=== PATIENT | female | born 1970 | race African-American/Black ===

== ENCOUNTER 2017-05-04 10:16 | Emergency (ER) | payer SELFPAY ==
[~2017-05-04] VITALS: Ht 149.9 cm; Wt 77.1 kg
--- OUTSIDE RECORDS SUMMARY | 2017-05-04 10:18 | XMS REPORT ---
Author Author [facility] Address Unknown Phone Unavailable Care Team Providers Care Associate Dean Of Women Name Role Phone CAROL, MARIAA Unavailable Unavailable VU, TRIEN Unavailable Unavailable Problems This patient has no known problems. Allergies, Adverse Reactions, Alerts This patient has no known allergies or adverse reactions. Medications This patient has no known medications. Results Test Description Test Time Test Comments Text Results Atomic Results Result Comments PT/APTT 2017-04-04 07:46:00 PROTIME (BEAKER) (test nhbe=660) 13.7 seconds 11.7-14.7 INR (BEAKER) (test bsly=080) 1.1 <=5.9 PARTIAL THROMBOPLASTIN TIME (BEAKER) (test npye=705) 27.6 seconds 22.5-36.0 RECOMMENDED COUMADIN/WARFARIN INR THERAPY RANGESSTANDARD DOSE: 2.0 - 3.0 Includes: PROPHYLAXIS for venous thrombosis, systemic embolization; TREATMENT for venous thrombosis and/or pulmonary embolus.HIGH RISK: Target INR is 2.5-3.5 for patients with mechanical heart valves.CT, BRAIN, WITHOUT [id number] 07:45:00FINAL REPORT CT head without contrast INDICATION : Migraine with history of pontine infarct, right occipital lobe infarct. TECHNIQUE: Axial noncontrast CT images through the head were obtained. This exam was performed according to our departmental dose optimization program which includes automated exposure control, adjustment of the mA and/or kV according to patient size and/or use of iterative reconstruction technique. COMPARISON: MRI brain 12/27/2016, CT head 12/26/2016 FINDINGS:A small left pontine infarct is now presumably chronic. The right occipital lobe infarcts are not readily apparent on CT. There are small chronic bilateral striatocapsular, right thalamic, right occipital lobe, and right cerebellar infarcts. Other white matter changes are similar and chronic appearing. No acute territorial infarct is evident on CT. Please note that CT is insensitive for early or small infarcts. Intracranial atherosclerotic calcifications are noted. There is no hydrocephalus, mass effect, or midline shift. The visualized sinuses, mastoid air cells, and orbits are unremarkable. Nonspecific prominent nasopharyngeal soft tissue may be reactive but should be correlated clinically. The calvarium is intact. IMPRESSION: No acute intracranial hemorrhage or mass effect. Advanced for age but chronic appearing ischemic changes. If there is persistent concern for acute abnormality, MRI is advised. Signed: Brain [place] MDReport Verified Date/Time: 04/04/2017 07:45:33 Reading Location: [facility] C013V Neuro Reading Room C METABOLIC [id number] 07:42:00* Test Item Value Reference Range Comments SODIUM (BEAKER) (test euar=392) 140 meq/L 136-145 POTASSIUM (BEAKER) (test kkhi=494) 3.7 meq/L 3.5-5.1 CHLORIDE (BEAKER) (test dnly=861) 112 meq/L 98-107 CO2 (BEAKER) (test mrub=704) 18 meq/L 22-29 BLOOD UREA NITROGEN (BEAKER) (test uozf=455) 8 mg/dL 7-21 CREATININE (BEAKER) (test tylf=702) 0.67 mg/dL 0.57-1.25 GLUCOSE RANDOM (BEAKER) (test zevz=726) 122 mg/dL 70-105 CALCIUM (BEAKER) (test mxbw=189) 9.6 mg/dL 8.4-10.2 EGFR (BEAKER) (test xpcb=3502) 113 mL/min/1.73 sq m ESTIMATED GFR IS NOT ACCURATE CREATININE CLEARANCE IN PREDICTING GLOMERULAR FILTRATION RATE. ESTIMATED GFR IS NOT APPLICABLE FOR DIALYSIS PATIENTS. CBC W/PLT COUNT & AUTO [id number] 07:26:00* Test Item Value Reference Range Comments WHITE BLOOD CELL COUNT (BEAKER) (test dupc=311) 9.0 K/ L 3.5-10.5 RED BLOOD CELL COUNT (BEAKER) (test luvs=440) 4.19 M/ L 3.93-5.22 HEMOGLOBIN (BEAKER) (test kuzk=559) 12.6 GM/DL 11.2-15.7 HEMATOCRIT (BEAKER) (test ikwr=230) 38.6 % 34.1-44.9 MEAN CORPUSCULAR VOLUME (BEAKER) (test iftn=335) 92.1 fL 79.4-94.8 MEAN CORPUSCULAR HEMOGLOBIN (BEAKER) (test sbos=418) 30.1 pg 25.6-32.2 MEAN CORPUSCULAR HEMOGLOBIN CONC (BEAKER) (test ifha=103) 32.6 GM/DL 32.2- 35.5 RED CELL DISTRIBUTION WIDTH (BEAKER) (test squl=260) 11.8 % 11.7-14.4 PLATELET COUNT (BEAKER) (test ufin=858) 312 K/CU MM 150-450 MEAN PLATELET VOLUME (BEAKER) (test mpcu=261) 8.7 fL 9.4-12.3 NUCLEATED RED BLOOD CELLS (BEAKER) (test sppn=338) 0 /100 WBC 0-0 NEUTROPHILS RELATIVE PERCENT (BEAKER) (test xorh=953) 68 % LYMPHOCYTES RELATIVE PERCENT (BEAKER) (test sdja=612) 24 % MONOCYTES RELATIVE PERCENT (BEAKER) (test xlvu=271) 6 % EOSINOPHILS RELATIVE PERCENT (BEAKER) (test duvd=538) 1 % BASOPHILS RELATIVE PERCENT (BEAKER) (test nzcr=259) 1 % NEUTROPHILS ABSOLUTE COUNT (BEAKER) (test zrri=063) 6.08 K/ L 1.56-6.13 LYMPHOCYTES ABSOLUTE COUNT (BEAKER) (test lhuy=596) 2.17 K/ L 1.18-3.74 MONOCYTES ABSOLUTE COUNT (BEAKER) (test wxgg=693) 0.53 K/ L 0.24-0.36 EOSINOPHILS ABSOLUTE COUNT (BEAKER) (test nipv=786) 0.11 K/ L 0.04-0.36 BASOPHILS ABSOLUTE COUNT (BEAKER) (test fqwg=161) 0.05 K/ L 0.01-0.08 IMMATURE GRANULOCYTES-RELATIVE PERCENT (BEAKER) (test ydem=9131) 0 % 0-1 DILUTE KATHERYN VIPER VENOM (DRVV)2016-12-31 15:34:00* Test Item Value Reference Range Comments PROTIME (BEAKER) (test vucd=506) 14.1 seconds 11.7-14.7 INR (BEAKER) (test pmbz=564) 1.1 <=5.9 PARTIAL THROMBOPLASTIN TIME (BEAKER) (test ajyg=939) 31.3 seconds 22.5-36.0 DRVV INTERPRETATION (BEAKER) (test opgt=7626) Normal DRVV Results DRVV INTERPRETATION (BEAKER) (test ciur=824935) Normal Hexagonal Phospholipid DRVV INTERPRETATION (BEAKER) (test otsp=972531) Negative screen for Lupus Anticoagulant XELB-LHFAXAJRRQK-055 (BEAKER) (test yimy=1486) Vianey Sims MD ( electronic signature) DRVV SCREEN RATIO (BEAKER) (test jdwh=4628) 0.87 <1.20 HEXAGONAL [id number] 13:39:00* Test Item Value Reference Range Comments HEXAGONAL PHOSPHOLIPID (BEAKER) (test vvlf=5360) Negative CARDIOLIPIN ANTIBODIES, IGG AND [id number] 14:06:00* Test Item Value Reference Range Comments ANTICARDIOLIPIN IGG ANTIBODY (BEAKER) (test efjn=887) < GPL ANTICARDIOLIPIN IGM ANTIBODY (BEAKER) (test tdnr=735) 0.4 MPL Anticardiolipin IgG Result Interpretation: <10.0 GPL Vmnkuh93.0-11.9 GPL Equivocal >/=12.0 GPL PositiveAnticardiolipin IgM Result Interpretation: < 10.0 MPL Irkpuo24.0-11.9 MPL Equivocal >/=12.0 MPL [id number] 07:53:00* Test Item Value Reference Range Comments PHOSPHORUS (BEAKER) (test fzsj=720) 2.8 mg/dL 2.3-4.7 [id number] 07:53:00* Test Item Value Reference Range Comments MAGNESIUM (BEAKER) (test igsg=541) 1.6 mg/dL 1.6-2.6 BASIC METABOLIC [id number] 07:53:00* Test Item Value Reference Range Comments SODIUM (BEAKER) (test pewn=201) 138 meq/L 136-145 POTASSIUM (BEAKER) (test awlo=004) 4.1 meq/L 3.5-5.1 CHLORIDE (BEAKER) (test ahfe=664) 107 meq/L 98-107 CO2 (BEAKER) (test jwjb=241) 24 meq/L 22-29 BLOOD UREA NITROGEN (BEAKER) (test eoav=100) 8 mg/dL 7-21 CREATININE (BEAKER) (test wvyg=213) 0.66 mg/dL 0.57-1.25 GLUCOSE RANDOM (KEISHAAKER) (test xsdk=145) 102 mg/dL 70-105 CALCIUM (BEAKER) (test egms=147) 9.1 mg/dL 8.4-10.2 EGFR (KEISHAAKER) (test leii=3751) 116 mL/min/1.73 sq m ESTIMATED GFR IS NOT ACCURATE CREATININE CLEARANCE IN PREDICTING GLOMERULAR FILTRATION RATE. ESTIMATED GFR IS NOT APPLICABLE FOR DIALYSIS PATIENTS. FACTOR 5 LEIDEN PCR (THROMBOTIC RISK)2016-12-28 15:08:00* Test Item Value Reference Range Comments FACTOR V LEIDEN (UMANG) (test fjij=075) Negative for the R506Q (Factor V Leiden) mutation [id number] ([facility]) (test dram=4251) Vianey iSms MD ( electronic signature) This test is a genotyping assay which evaluates the DNA sequence corresponding to Codon 506 of the Factor V Gene. A region of the Factor V Gene is amplified by polymerase chain reaction followed by fluorescent monitoring of a specific pair of hybridized probes. Since genetic variation and other factors can affect the accuracy of direct mutation testing, these results should be interpreted in light of clinical and familial data.This test was developed and its performance characteristics determined by the [facility] Pathology Department, Section of Molecular Pathology. It has not been cleared or approved by the U.S. Food and Drug Administration (FDA), since FDA approval is not required for clinical use of the test. Validation was done as required by the Clinical Laboratory Improvement Amendments of 1988.PROTHROMBIN GENE [id number] 15:05:00* Test Item Value Reference Range Comments PROTHROMBIN/FACTOR II (KEISHAAKER) (test cbuc=9443) Negative for the U13226Z ( Prothrombin/Factor II) mutation. [id number]([facility]) (test riha=4906) Vianey Sims MD ( electronic signature) This test is a genotyping assay which evaluates the DNA sequence at position [address] of the prothrombin (Factor II) gene. A region of the prothrombin (Factor II) gene is amplified by polymerase chain reaction followed by fluorescent monitoring of a specific pair of hybridized probes. Since genetic variation and other factors can affect the accuracy of direct mutation testing, these results should be interpreted in light of clinical and familial data.This test was developed and its performance characteristics determined by the [facility] Pathology Department, Section of Molecular Pathology. It has not been cleared or approved by the U.S. Food and Drug Administration (FDA), since FDA approval is not required for clinical use of the test. Validation was done as required by the Clinical Laboratory Improvement Amendments of 1988.DOUBLE- STRANDED DNA (DSDNA) [id number] 13:28:00* Test Item Value Reference Range Comments ANTI-DNA DS (BEAKER) (test rqfn=6898) Negative [id number] 07:15:00* Test Item Value Reference Range Comments RPR SCREEN (BEAKER) (test abyc=156) Nonreactive Nonreactive MR, BRAIN, [id number] 19:51:00FINAL REPORT MRI Brain with and without contrast 12/27/2016 7:46 PM CLINICAL HISTORY: Vasculitis, UNDERWRITING ANALYST, focal neuro deficit TECHNIQUE: Multiplanar, multisequence MR imaging of the brain was performed, utilizing the following imaging sequences: Axial T1, T2, FLAIR, GRE, DWI/ADC; sagittal T1; postcontrast axial, sagittal, and coronal T1. COMPARISON: CT brain 12/26/2016. FINDINGS: There is a small acute nonhemorrhagic infarct in the dorsal left martha. There there are punctate recent infarcts in the subcortical white matter of the right occipital lobe and right periatrial white matter. There is no hematoma, mass, hydrocephalus, extra-axial collection , or abnormal intracranial enhancement. There are chronic microvascular infarcts in the [place] nuclei and martha, with mild chronic microvascular ischemia elsewhere in the supratentorial white matter and martha. There are tiny chronic infarcts in the cortex of the right occipital lobe and right cerebellum. Normal appearing flow-voids are present in the major intracranial vascular structures. The sellar and pineal regions, craniocervical junction, orbits, face, and skull base are unremarkable. IMPRESSION:1. Small acute nonhemorrhagic left pontine infarct.2. Punctate recent nonhemorrhagic right occipital lobe and right periatrial white matter infarcts.3. Chronic ischemic changes, greater than expected for age. Signed: Shahram Henry Verified Date/Time: 12/27/2016 19:51:45 Reading Location: [facility] Reading Room Electronically signed by: SHAHRAM HENRY M.D. on 07:51 PM MR, SPINE, CERVICAL, [id number] 19:45:00FINAL REPORT MRI cervical spine with and without contrast 12/27/2016 at 1933. CLINICAL HISTORY: Transverse myelitis, focal neuro deficit. TECHNIQUE: MRI of the cervical spine was performed utilizing the following sequences: Sagittal T1, T2, STIR; axial T1 and T2; postcontrast sagittal and axial T1. COMPARISON: None available. FINDINGS: The spinal cord is normal in size and signal intensity and contains no areas of abnormal enhancement. There is no fracture or malalignment. Bone marrow signal intensity is unremarkable. Spinal canal diameter is within normal limits. There are multilevel degenerative changes, without high-grade central canal or foraminal stenosis. The visualized soft tissue is without worrisome finding. There is a tiny chronic appearing infarct in the inferior right cerebellum. IMPRESSION:1. No evidence for transverse myelitis.2. Chronic appearing mild degenerative changes.3. Chronic appearing right cerebellar infarct. Please refer to separately dictated report for the MRI brain for further details. Signed: Shahram Henry MDReport Verified Date/Time: 12/27/2016 19:45:06 Reading Location: [facility] Reading Room Electronically signed by: SHAHRAM HNERY M.D. on 07:45 PM MR, MRA, NECK, WITHOUT IV [id number] 18:51:00Reason for exam:->Ischemic Stroke EvaluationFINAL REPORT MRA brain and neck without contrast 12/27/2016 6:50 PM CLINICAL HISTORY: StrokeIschemic Stroke Evaluation COMPARISON: None available TECHNIQUE: Two- and three-dimensional lnxn-ah-uaqpah MRA images of the intra- and extracranial arterial vasculature was performed, from which maximal intensity projection 3-D reconstructions were created. FINDINGS: MRA neck: There is no vessel occlusion or flow-limiting stenosis. There is no NASCET-quantifiable cervical internal carotid artery stenosis. Flow is antegrade in both vertebral arteries. MRA [place]: There is no vessel occlusion or flow-limiting stenosis. There are infundibula arising from both communicating segment internal carotid arteries. IMPRESSION: Negative intra- and extracranial MRAs. Signed: Shahram Henry Verified Date/Time: 12/27/2016 18:51:00 Reading Location: [facility] Reading Room , MRA, BRAIN, WITHOUT [id number] 18:50: 00Reason for exam:->Ischemic Stroke EvaluationFINAL REPORT MRA brain and neck without contrast 12/27/2016 6:50 PM CLINICAL HISTORY : StrokeIschemic Stroke Evaluation COMPARISON: None available TECHNIQUE: Two- and three-dimensional qqmi-xj-bnysmk MRA images of the intra- and extracranial arterial vasculature was performed, from which maximal intensity projection 3-D reconstructions were created. FINDINGS: MRA neck: There is no vessel occlusion or flow-limiting stenosis. There is no NASCET-quantifiable cervical internal carotid artery stenosis. Flow is antegrade in both vertebral arteries. MRA [place]: There is no vessel occlusion or flow-limiting stenosis. There are infundibula arising from both communicating segment internal carotid arteries. IMPRESSION: Negative intra- and extracranial MRAs. Signed: Shahram Henry Verified Date/Time: 12/27/2016 18:50:40 Reading Location: [facility] Reading Room MENTATION [id number] 17:56:00* Test Item Value Reference Range Comments SEDIMENTATION RATE, ERYTHROCYTE (BEAKER) (test qrmw=351) 32 mm/HR 0-20 PROTEIN C [id number] 12:49:00* Test Item Value Reference Range Comments PROTEIN C ACTIVITY (BEAKER) (test hnxc=892) 138.0 % 70.0-130.0 ANTITHROMBIN [id number] 12:40:00* Test Item Value Reference Range Comments ANTITHROMBIN III ACTIVITY (BEAKER) (test wzsz=917) 106.0 % 80.0-120.0 HEMOGLOBIN [id number] 09:05:00* Test Item Value Reference Range Comments HEMOGLOBIN A1C (BEAKER) (test cfpu=555) 4.7 % 4.3-6.1 TROPONIN [id number] 04:05:00* Test Item Value Reference Range Comments TROPONIN I (BEAKER) (test uqbw=074) < ng/mL 0.00-0.03 Troponin I (TnI) levels must be interpreted in the context of the presenting symptoms and the clinical findings. Elevated TnI levels indicate myocardial damage, but are not specific for ischemic heart disease. Elevated TnI levels are seen in patients with other cardiac conditions (including myocarditis and congestive heart failure), and slight TnI elevations occur in patients with other conditions, including sepsis, renal failure, acidosis, acute neurological disease, and persistent tachyarrhythmia.FastingLIPID [id number] 03:58:00* Test Item Value Reference Range Comments TRIGLYCERIDES (BEAKER) (test zabj=587) 97 mg/dL CHOLESTEROL (BEAKER) (test fqjb=002) 189 mg/dL HDL CHOLESTEROL (BEAKER) (test nros=358) 45 mg/dL LDL CHOLESTEROL CALCULATED (BEAKER) (test tter=896) 125 mg/dL Triglyceride Reference Range: Low Risk <150 Borderline 150-199 High Risk 200-499 Very High Risk >=500Cholesterol Reference Range: Low Risk <200 Borderline 200-239 High Risk >240HDL Cholesterol Reference Range: Low Risk >=60 High Risk <40LDL Cholesterol Reference Range: Optimal <100 Near Optimal 100-129 Borderline 130-159 High 160-189 Very High >=190 [id number] 19:44:00* Test Item Value Reference Range Comments HOMOCYSTEINE (BEAKER) (test igvh=649) 5.9 umol/L 5.1-15.4 COMPLEMENT COMPONENT [id number] 19:24:00* Test Item Value Reference Range Comments C4 COMPLEMENT (BEAKER) (test ocxa=909) 33 mg/dL 15-57 COMPLEMENT COMPONENT [id number] 19:24:00* Test Item Value Reference Range Comments C3 COMPLEMENT (BEAKER) (test emyu=726) 151 mg/dL 82-193 T4, [id number] 18:32:00* Test Item Value Reference Range Comments FREE T4 (BEAKER) (test paxv=972) 0.84 ng/dL 0.70-1.48 TSH/FREE T4 IF [id number] 17:39:00* Test Item Value Reference Range Comments THYROID STIMULATING HORMONE (BEAKER) (test lhqq=936) 0.16 uIU/mL 0.35-4.94 VITAMIN B12 AND [id number] 17:29:00* Test Item Value Reference Range Comments VITAMIN B12 (BEAKER) (test clpv=403) 326 pg/mL 213-816 FOLATE (BEAKER) (test uuwd=274) 10.3 ng/mL >=7.0 CREATINE KINASE (CK), TOTAL AND [id number] 16:54:00* Test Item Value Reference Range Comments CREATINE KINASE TOTAL (BEAKER) (test antn=151) 77 U/L 29-200 CREATINE KINASE-MB (BEAKER) (test licu=349) 0.6 ng/mL 0.0-6.6 CREATINE KINASE-MB INDEX (BEAKER) (test vnen=524) 0.8 % CK-MB Reference Range:<6.7 Normal6.7-10.0 Borderline>10.0 AbnormalTROPONIN [id number] 16:54:00* Test Item Value Reference Range Comments TROPONIN I (KEISHAAKER) (test pzme=590) < ng/mL 0.00-0.03 Troponin I (TnI) levels must be interpreted in the context of the presenting symptoms and the clinical findings. Elevated TnI levels indicate myocardial damage, but are not specific for ischemic heart disease. Elevated TnI levels are seen in patients with other cardiac conditions (including myocarditis and congestive heart failure), and slight TnI elevations occur in patients with other conditions, including sepsis, renal failure, acidosis, acute neurological disease, and persistent tachyarrhythmia.C-REACTIVE [id number] 16:43:00* Test Item Value Reference Range Comments C-REACTIVE PROTEIN (KEISHAAKER) (test zbcj=854) 0.68 mg/dL 0.00-0.50 B-TYPE NATRIURETIC FACTOR (BNP)2016-12-26 11:20:00* Test Item Value Reference Range Comments B-TYPE NATRIURETIC PEPTIDE (KEISHAAKER) (test qrux=922) 90 pg/mL 0-100 CT, BRAIN, WITHOUT [id number] 11:08:00Reason for exam:->SHORTNESS OF BREATHReason for exam:->HEADACHEIs the patient ?->NoWhat is the patient' s sedation requirement?->No SedationFINAL REPORT CT head without contrast. Comparisons: No Reason for exam: Focal neuro deficit, new, fixed or worsening, <6 hoursSHORTNESS OF BREATHHEADACHE. Discussion: Multiple axial CT images of the head are provided without contrast evaluated in brain and bone windows. Dose modulation, iterative reconstruction, and/or weight based adjustment of the mA/kV was utilized to reduce the radiation dose to as low as reasonably achievable. There is no CT evidence of intracranial hemorrhage, mass-effect, hydrocephalus, shift, or extra-axial collections. A low-density focus is seen in the right-sided anterior martha. It is possible that this is artifactual but a microvascular insult would have a similar appearance. Other suspected microvascular changes are seen in the corpus striatum regions both sides. The visualized dural sinus regions, orbital contents, paranasal sinuses, bones and surrounding soft tissues are unremarkable. Impressions: 1. No specific evidence of acute intracranial abnormality. 2. Probable microvascular changes as discussed which could be further evaluated with MRI if clinically appropriate. Signed: Delvin Villegas Verified Date/Time: 12/26/2016 11:08:09 Reading Location: [address] Reading Room /[id number] 10:48:00* Test Item Value Reference Range Comments PROTIME (BEAKER) (test fzil=404) 14.4 seconds 11.7-14.7 INR (BEAKER) (test imcl=614) 1.1 <=5.9 PARTIAL THROMBOPLASTIN TIME (BEAKER) (test ysjp=867) 32.4 seconds 22.5-36.0 RECOMMENDED COUMADIN/WARFARIN INR THERAPY RANGESSTANDARD DOSE: 2.0 - 3.0 Includes: PROPHYLAXIS for venous thrombosis, systemic embolization; TREATMENT for venous thrombosis and/or pulmonary embolus.HIGH RISK: Target INR is 2.5-3.5 for patients with mechanical heart valves.CREATINE KINASE (CK), TOTAL AND [id number] 10:43:00* Test Item Value Reference Range Comments CREATINE KINASE TOTAL (BEAKER) (test csrf=509) 85 U/L 29-200 CREATINE KINASE-MB (BEAKER) (test sptl=622) 0.6 ng/mL 0.0-6.6 CREATINE KINASE-MB INDEX (BEAKER) (test qkxd=643) 0.7 % CK-MB Reference Range:<6.7 Normal6.7-10.0 Borderline>10.0 AbnormalTROPONIN [id number] 10:43:00* Test Item Value Reference Range Comments TROPONIN I (BEAKER) (test cqnx=095) < ng/mL 0.00-0.03 Troponin I (TnI) levels must be interpreted in the context of the presenting symptoms and the clinical findings. Elevated TnI levels indicate myocardial damage, but are not specific for ischemic heart disease. Elevated TnI levels are seen in patients with other cardiac conditions (including myocarditis and congestive heart failure), and slight TnI elevations occur in patients with other conditions, including sepsis, renal failure, acidosis, acute neurological disease, and persistent tachyarrhythmia.[id number] 10:40:00* Test Item Value Reference Range Comments MAGNESIUM (BEAKER) (test mdsf=826) 1.9 mg/dL 1.6-2.6 Specimen slightly hemolyzed BASIC METABOLIC [id number] 10:40:00* Test Item Value Reference Range Comments SODIUM (BEAKER) (test bnjp=065) 140 meq/L 136-145 POTASSIUM (BEAKER) (test lgqx=238) 3.6 meq/L 3.5-5.1 Specimen slightly hemolyzed CHLORIDE (BEAKER) (test ebpo=858) 110 meq/L 98-107 CO2 (BEAKER) (test sspe=772) 20 meq/L 22-29 BLOOD UREA NITROGEN (BEAKER) (test rhxb=525) 8 mg/dL 7-21 CREATININE (BEAKER) (test qrit=388) 0.66 mg/dL 0.57-1.25 Specimen slightly hemolyzed GLUCOSE RANDOM (BEAKER) (test cttw=384) 112 mg/dL 70-105 CALCIUM (BEAKER) (test rmkf=548) 9.6 mg/dL 8.4-10.2 EGFR (BEAKER) (test ztmu=3269) 116 mL/min/1.73 sq m ESTIMATED GFR IS NOT ACCURATE CREATININE CLEARANCE IN PREDICTING GLOMERULAR FILTRATION RATE. ESTIMATED GFR IS NOT APPLICABLE FOR DIALYSIS PATIENTS. CBC W/PLT COUNT & AUTO [id number] 10:25:00* Test Item Value Reference Range Comments WHITE BLOOD CELL COUNT (BEAKER) (test pvke=511) 7.4 K/ L 3.5-10.5 RED BLOOD CELL COUNT (BEAKER) (test prin=201) 4.36 M/ L 3.93-5.22 HEMOGLOBIN (BEAKER) (test lbcf=667) 13.1 GM/DL 11.2-15.7 HEMATOCRIT (BEAKER) (test cpxy=804) 40.0 % 34.1-44.9 MEAN CORPUSCULAR VOLUME (BEAKER) (test lzwr=243) 91.7 fL 79.4-94.8 MEAN CORPUSCULAR HEMOGLOBIN (BEAKER) (test aveq=013) 30.0 pg 25.6-32.2 MEAN CORPUSCULAR HEMOGLOBIN CONC (BEAKER) (test wnde=144) 32.8 GM/DL 32.2- 35.5 RED CELL DISTRIBUTION WIDTH (BEAKER) (test ovci=727) 11.2 % 11.7-14.4 PLATELET COUNT (BEAKER) (test xccn=291) 349 K/CU MM 150-450 MEAN PLATELET VOLUME (BEAKER) (test lwex=652) 9.0 fL 9.4-12.3 NUCLEATED RED BLOOD CELLS (BEAKER) (test tvqw=826) 0 /100 WBC 0-0 NEUTROPHILS RELATIVE PERCENT (BEAKER) (test fmkz=807) 58 % LYMPHOCYTES RELATIVE PERCENT (BEAKER) (test evgv=912) 30 % MONOCYTES RELATIVE PERCENT (BEAKER) (test tqsi=115) 9 % EOSINOPHILS RELATIVE PERCENT (BEAKER) (test crbj=044) 2 % BASOPHILS RELATIVE PERCENT (BEAKER) (test gcet=264) 1 % NEUTROPHILS ABSOLUTE COUNT (BEAKER) (test qfim=542) 4.32 K/ L 1.56-6.13 LYMPHOCYTES ABSOLUTE COUNT (BEAKER) (test hvxy=316) 2.20 K/ L 1.18-3.74 MONOCYTES ABSOLUTE COUNT (BEAKER) (test nape=888) 0.69 K/ L 0.24-0.36 EOSINOPHILS ABSOLUTE COUNT (BEAKER) (test zvuv=328) 0.17 K/ L 0.04-0.36 BASOPHILS ABSOLUTE COUNT (BEAKER) (test xxky=008) 0.04 K/ L 0.01-0.08 IMMATURE GRANULOCYTES-RELATIVE PERCENT (BEAKER) (test jzkn=6383) 0 % 0-1 RAD, CHEST, 1 VIEW, NON [id number] 10:01:00Reason for exam:->SHORTNESS OF BREATHReason for exam:->HEADACHEIs the patient ?->NoFINAL REPORT Chest, AP view. History: Shortness of breath. Comparison: None available. Discussion: The cardiomediastinal silhouette and pulmonary vasculature are within normal limits. The lungs are clear without evidence of consolidation or effusion. There are no acute osseous abnormalities. The soft tissues are unremarkable. IMPRESSION: No acute cardiopulmonary abnormality. Signed: Hugh Laurent MDReport Verified Date/Time : 12/26/2016 10:01:30 Reading Location: [facility] C0[facility] Ortho Consult Reading Room 10: 01 AM
[2017-05-04] MEDS ORDERED: ATENOLOL50 MG PO (10:41)
[2017-05-04] MEDS ORDERED: AMITRIPTYLINE H25 MG PO (10:41)
[2017-05-04] MEDS ORDERED: KETOROLAC TROMETHAMINE 30 MG/ML VIAL IV STA (10:52)
[2017-05-04] MEDS ORDERED: SODIUM CHLORIDE 0.9% 1000ML 1,000 ML IV STA (10:52)
[2017-05-04] MEDS ORDERED: METOCLOPRAMIDE HCL 10 MG/2ML VIAL IV ONE (11:00)
[2017-05-04] MEDS ORDERED: DIPHENHYDRAMINE HCL INJ 50 MG/ML VIAL IV ONE (11:00)
[2017-05-04 11:20] LABS: BASOPHILS % 0.6 % (0.0-1.0); EOSINOPHILS # (AUTO) 0.2 (0.0-0.4); EOSINOPHILS % 2.5 % (0.0-6.0); HEMATOCRIT 37.4 % (34.2-44.1); HEMOGLOBIN 12.3 g/dL (12.0-16.0); LYMPHOCYTES # (AUTO) 2.2 (1.0-3.2); LYMPHOCYTES % 32.8 % (18.0-39.1); MEAN CORPUSCULAR HEMOGLOBIN 30.1 pg (28-32); MEAN CORPUSCULAR HGB CONC 32.9 g/dL (31-35); MEAN CORPUSCULAR VOLUME 91.4 fL (81-99); MONOCYTES # (AUTO) 0.6 (0.2-0.8); MONOCYTES % 9.4 % (4.4-11.3); NEUTROPHILS # (AUTO) 3.6 (2.1-6.9); NEUTROPHILS % 54.4 % (38.7-80.0); PLATELET COUNT 300 x10e3/uL (140-360); RED BLOOD COUNT 4.09 x10e6/uL (3.6-5.1); RED CELL DISTRIBUTION WIDTH 11.9 % (11.7-14.4)
[2017-05-04 11:21] LABS: BILIRUBIN,URINE NEGATIVE (NEGATIVE); CLARITY,URINE CLEAR (CLEAR); COLOR,URINE YELLOW (YELLOW); KETONES,URINE NEGATIVE (NEGATIVE); LEUKOCYTE ESTERASE ,URINE 2+ (NEGATIVE); NITRITE,URINE NEGATIVE (NEGATIVE); PROTEIN,URINE DIPSTICK 1+ (NEGATIVE); URINE UROBILINOGEN 0.2 mg/dL (0.2 - 1)
[2017-05-04 11:38] LABS: AMORPHOUS SEDIMENT,URINE RARE (FEW); EPITHELIAL CELLS,URINE MODERATE /LPF
--- NOTE | 2017-05-04 11:38 | Diagnostic Imaging Report ---
PROCEDURE: X-RAY CHEST, TWO VIEWS COMPARISON: None. INDICATIONS: HEADACHE, HYPERTENSION FINDINGS: Lungs are well-inflated. No focal consolidation, pleural effusion, or pneumothorax. Cardiomediastinal contour and pulmonary vasculature are within normal limits. No acute osseous abnormalities. Surgical clips project over the right upper quadrant of the abdomen, likely related to prior cholecystectomy. CONCLUSION: No acute cardiopulmonary abnormality. Dictated by: Jose Luis Link M.D. on 05/04/2017 at 11:38 Electronically approved by: Jose Luis Link M.D. on 05/04/2017 at 11:38
--- NOTE | 2017-05-04 11:40 | Diagnostic Imaging Report ---
Exam: Head CT without contrast History: Headache, numbness Comparison studies: None Technique: Axial images were obtained from the skull base to the vertex. Coronal and sagittal images reconstructed from the axial data. Intravenous contrast: None Findings: Scalp: No abnormalities. Bones: No fractures, blastic or lytic lesions. Brain sulci: Appropriate for age. Ventricles: Normal in size and configuration. No hydrocephalus. Extra-axial spaces: No masses, no fluid collection. Parenchyma: No mass, acute hemorrhage or acute or chronic cortical vascular insults. Small age-indeterminate nonhemorrhagic lacunar insult in the right frontal pulliam radiata. Small chronic lacunar infarct in the genu of the right internal capsule, head of the right caudate nucleus, left subinsular white matter, right thalamus, in the martha, and in the right cerebellum. A few subtle hypodensities in the supratentorial white matter are nonspecific but most compatible with chronic small vessel ischemic changes. Sellar/suprasellar region: No abnormalities. Craniocervical junction: Patent foramen magnum. No Chiari one malformation. Incidental findings: Atherosclerotic calcifications in the carotid siphons. IMPRESSION: 1. Age-indeterminate nonhemorrhagic lacunar insult in the right pulliam radiata. 2. No mass, acute hemorrhage or acute cortical vascular insults. 3. Mild chronic microvascular ischemic changes with multiple chronic lacunar infarcts as described. If there remains persistent concern for acute ischemia, brain MRI could further evaluate. Signed by: Dr. Jose Luis Philip M.D. on 05/04/2017 11:36 AM
[2017-05-04 11:41] LABS: ALANINE AMINOTRANSFERASE 13 IU/L (0-55); ALBUMIN/GLOBULIN RATIO 1.1 (0.8-2.0); ALKALINE PHOSPHATASE 102 IU/L (40-150); ANION GAP 9.8 mmol/L (8-16); BLOOD UREA NITROGEN 8 mg/dL (7-26); BUN/CREATININE RATIO 11 (6-25); CALCIUM 9.1 mg/dL (8.4-10.2); CARBON DIOXIDE 25 mmol/L (22-29); CHLORIDE 111 mmol/L (98-107); CREATINE KINASE 43 IU/L (29-168); CREATININE, SERUM 0.72 mg/dL (0.57-1.11); EST GLOMERULAR FILTRATION RATE > 60 ML/MIN (60-); GLUCOSE 91 mg/dL (74-118); POTASSIUM 3.8 mmol/L (3.5-5.1); SODIUM 142 mmol/L (136-145)
[2017-05-04 12:31] VITALS: BP 172/106
== END 2017-05-04 13:01 | disposition home or self-care (01) ==
LOC: ER 10:16
DX: G44.89 Other headache syndrome (principal); I10 Essential (primary) hypertension; Z86.73 Personal history of transient ischemic attack (TIA), and cerebral infarction without residual deficits
CPT/HCPCS: 36415; 70450; 71046; 80053; 81001; 82550; 82553; 84484; 85025; 93005; 99283; J1200; J1885; J2765; J7030